=== PATIENT | female | born 1970 | race Two or more races ===

== ENCOUNTER 2017-06-19 21:44 | Emergency (ER) | payer MEDICAID ==
[2017-06-19] MEDS ORDERED: Ketorolac 60 MG/2 ML SDV IM ONE (22:44)
[2017-06-19] MEDS ORDERED: Ketorolac 10 MG Tab PO ONE (22:49)
[2017-06-19 22:59] VITALS: BP 96/50
--- NOTE | 2017-06-21 22:11 | ER ---
DATE SEEN: 06/19/2017 CHIEF COMPLAINT: Left rib cage pain. HISTORY OF PRESENT ILLNESS: A 46-year-old female with pain in the left rib cage for several months. In the office, I saw her, ordered several tests including an x-ray that was negative, CBC was unremarkable. She tested positive for H. pylori. Her pain is uncontrolled and she feels like there is swelling. She has no fever. No cough or shortness of breath. PAST MEDICAL HISTORY: Hypertension, type 2 diabetes, constipation, abdominal pain. CURRENT MEDICATIONS: Reviewed. ALLERGIES: No known allergies. PHYSICAL EXAMINATION: VITAL SIGNS: She is afebrile. Her blood pressure is normal. Her pulse is 80. ABDOMEN: Soft. There is tenderness to the left rib cage. LUNGS: Clear. CARDIOVASCULAR: Normal. MENTAL STATUS: Alert. LABORATORY AND DIAGNOSTIC DATA: Labs none. EKG; Q-waves in II, III, and aVF. FINAL IMPRESSION: 1. Helicobacter pylori infection. 2. Ribcage pain. PLAN: 1. Ketorolac 60 mg IM and then 10 mg t.i.d. p.r.n. 2. Physical therapy will be ordered as an outpatient in [place]. 3. I gave a triple therapy for H. pylori infection, which was sent to the pharmacy; amoxicillin, Biaxin, and omeprazole. She is advised to follow up in the office in a month with myself. /[id number] BITA/INGA
== END 2017-06-19 22:57 | disposition home or self-care (01) ==
LOC: FB.ED 21:44
DX: R07.81 Pleurodynia (principal); A04.8 Other specified bacterial intestinal infections; I10 Essential (primary) hypertension; E11.9 Type 2 diabetes mellitus without complications
CPT/HCPCS: 93005; 96372; 99283; A9270; J1885

== ENCOUNTER 2017-10-19 07:44 | Day surgery (SDC) | payer BC ==
[2017-10-19] MEDS ORDERED: Lactated Ringers 1,000 ML IV SCH (07:45)
[2017-10-19] MEDS ORDERED: Sodium Chloride 0.9% 10 ML Syringe FLUSH PRN (07:45)
[2017-10-19] MEDS ORDERED: Lidocaine 2% 100 MG/5 ML Syringe IVPUSH ONE (09:45)
[2017-10-19] MEDS ORDERED: Midazolam 1 MG/ML 2 ML SDV IV ONE (09:45)
[2017-10-19] MEDS ORDERED: Propofol 200 MG/20 ML SDV IV ONE (09:45)
--- NOTE | 2017-10-19 10:09 | PCM.OPNOTE ---
- General Post-Op/Procedure Note Date of Surgery/Procedure: 10/19/17 Operative Procedure(s): egd with bx Findings: retained food gastritis Pre Op Diagnosis: epigastric abd pain Post-Op Diagnosis: retained food. gastritis Anesthesia Technique: MAC Primary Surgeon: Tee Bermudez Anesthesia Provider: Sarai Pretty Pathology: stomach Complications: None Condition: Good Free Text/Narrative:: see dictation
[2017-10-19 11:04] VITALS: BP 119/74
--- NOTE | 2017-10-19 12:05 | OR ---
DATE OF OPERATION: 10/19/2017 SURGEON: Tee Bermudez MD PROCEDURE PERFORMED: Upper endoscopy. PREOPERATIVE DIAGNOSIS: History of epigastric abdominal pain. POSTOPERATIVE DIAGNOSIS: Gastritis and what appears to be gastroparesis. INDICATIONS FOR PROCEDURE: This is a 46-year-old female with a longstanding history of diabetes, who was referred with a history of epigastric right upper quadrant abdominal pain. She was offered and accepted an EGD. DESCRIPTION OF PROCEDURE: After an excellent IV sedation was administered, the bite block was inserted. The flexible endoscope was passed without difficulty down the patient's esophagus into the stomach. The stomach was insufflated, scope was passed through the pylorus to the second portion of the duodenum and slowly withdrawn. The following findings were noted. Duodenum was essentially unremarkable. Stomach demonstrates mild gastritis and retained food from last night suggestive of gastroparesis. Biopsies were taken. The esophagus was unremarkable. The patient tolerated the procedure well and was taken to recovery. /[id number] /CORTNEYL
== END 2017-10-19 11:15 | disposition home or self-care (01) ==
LOC: FB.SDS 07:44
PROVIDERS: ATTEND Surgery
DX: K29.70 Gastritis, unspecified, without bleeding (principal); I10 Essential (primary) hypertension; E11.9 Type 2 diabetes mellitus without complications; E78.5 Hyperlipidemia, unspecified; Z79.4 Long term (current) use of insulin; Z79.82 Long term (current) use of aspirin; Z79.899 Other long term (current) drug therapy
CPT/HCPCS: 43239; 81025; 82962; 88305; 88342; J2250; J2704; J7120